=== PATIENT | male | born 1945 | race Caucasian/White ===

== ENCOUNTER 2018-11-17 22:22 | Emergency (ER) | payer MEDICARE, MEDICAID ==
[~2018-11-17] VITALS: Ht 172.7 cm; Wt 124.5 kg
[2018-11-17] MEDS ORDERED: METO-558 PO (22:47)
[2018-11-18] MEDS ORDERED: BACITRACIN 0.9 GM PACKET OINTMENT TP ONE (00:30)
[2018-11-18 01:22] VITALS: BP 133/76
== END 2018-11-18 01:32 | disposition home or self-care (01) ==
LOC: EMS 22:24
DX: S80.822A Blister (nonthermal), left lower leg, initial encounter (principal); I10 Essential (primary) hypertension; X58.XXXA Exposure to other specified factors, initial encounter; Y93.89 Activity, other specified; Y92.89 Other specified places as the place of occurrence of the external cause; Y99.8 Other external cause status